=== PATIENT | male | born 1970 | race Caucasian/White ===

== ENCOUNTER 2020-04-26 09:18 | Outpatient (CLI) | payer BC, SELFPAY ==
[2020-04-28 07:38] LABS: Patient Race White; SARS-CoV-2 Specimen Source Nasal
[2020-04-28 09:04] LABS: SARS-CoV-2 RNA Detected (Undetected)
--- NOTE | 2020-04-29 16:40 | RESPIRATORY ---
04/29/2020-Met with out under carport at [facility] to review Pulse Oximetry EDU for at home testing as this Pt is COVID+. Gave a parameter handout, as well. states that this pt has had a severe headache since last Wed. and high temps . Last temp taken was 102.3.
== END 2020-04-26 09:38 ==
PROVIDERS: PCP Student in an Organized Health Care Education/Training Program; Visit Provider Student in an Organized Health Care Education/Training Program
DX: R51.9 Headache, unspecified (principal); R05 Cough
CPT/HCPCS: U0003

== ENCOUNTER 2020-05-10 03:37 | Outpatient (CLI) | payer BC, SELFPAY ==
[2020-05-12 19:20] LABS: COVID-19 RT-PCR Result NEGATIVE (Negative)
== END 2020-05-10 03:57 ==
PROVIDERS: PCP Student in an Organized Health Care Education/Training Program; Visit Provider Student in an Organized Health Care Education/Training Program
DX: Z20.828 Contact with and (suspected) exposure to other viral communicable diseases (principal)
CPT/HCPCS: U0003

== ENCOUNTER 2020-10-23 07:58 | Outpatient (CLI) | payer BC, SELFPAY ==
[2020-10-23 08:38] LABS: Anion Gap 9.7 mmol/L (3-11); BUN 19 mg/dL (7-18); CO2 28.3 mmol/L (21.0-32.0); CREATININE 1.1 mg/dL (0.70-1.30); Calcium 8.9 mg/dL (8.5-10.1); Calculated LDL 131 mg/dL (<100); Chloride 106 mmol/L (98-107); Cholesterol 198 mg/dL (<200); Glucose 102 mg/dL (74-106); HDL Cholesterol 57 mg/dL (40-60); Potassium 4.4 mmol/L (3.5-5.1); Sodium 144 mmol/L (136-145); Triglyceride 52 mg/dL (<150)
[2020-10-23 17:08] LABS: PSA, Screening 0.6 ng/mL (0.0-3.5)
== END 2020-10-23 07:59 | disposition home or self-care (01) ==
LOC: LBO 07:59
PROVIDERS: PCP Student in an Organized Health Care Education/Training Program; Visit Provider Student in an Organized Health Care Education/Training Program
DX: E86.0 Dehydration (principal); Z13.1 Encounter for screening for diabetes mellitus; Z13.220 Encounter for screening for lipoid disorders; Z12.5 Encounter for screening for malignant neoplasm of prostate
CPT/HCPCS: 80048; 80061; 84153

== ENCOUNTER 2022-01-02 09:11 | Day surgery (SDC) | payer BC, SELFPAY ==
--- NOTE | 2022-01-01 11:25 | W.COLOREPORT ---
Colonoscopy Report Date of procedure: 01/02/22 Pre-op diagnosis general: CRC screening Post-op diagnosis procedure note: other (polyp) Surgeon: Debi Little Anesthesia Type: General:No Airway Estimated blood loss (mL): 1 Pathology: other Complications: None Disposition: same day Prep: Miralax/Dulcolax Retraction Time: 9 Procedure Description: After informed consent was obtained the patient was taken to the procedure room and placed in a left decubitous position. Monitors were applied and a time out was done. The patients name, date of , procedure, allergies to medications and metal in their body was reviewed. The patient was then sedated. Once sedated and comfortable a rectal exam was done. External exam was normal. Internal exam revealed a normal sphincter tone and no palpable masses. The prostate nl. The scope was then introduced and retrofelexed. No internal hemorrhoids were identified. The scope was then advanced to the cecum w/out difficulty. The TI and appendiceal orifice were identified. The prep was BB PS 3 in the rectosigmoid/left colon and transverse colon, and 2 in the right colon/cecum, for a total of 8.. The scope was then slowly retracted over 9 minutes back into the rectum. There are no diverticula visualized. He has a small flat 5 mm polyp at 20 cm. This is removed with a cold biting forcep. All specimen is retrieved and no bleeding is noted. The scope was removed and the patient was woken up and taken back to Same day surgery in stable condition. The patient tolerated the procedure well and there were no immediate complications. Follow up: The patient should follow up in 7-10 years, path pending, unless they develop changes in bowel habits or other new gastrointestinal complaints.
--- NOTE | 2022-01-01 11:26 | PDOC.DSDIS_ITS ---
Discharge Plan Disposition Patient Disposition: HOME Condition: Good Discharge Details Reason For Visit: colon scope Attending Provider: Debi Little Primary Care Provider: Mariela Velázquez Home Meds and New Rx's Prescriptions: Discontinued bisacodyl [Dulcolax (bisacodyl)] 5 mg tablet,delayed release (DR/EC) 5 mg PO ONCE Qty: 4 0RF Rx Instructions: Take according to provider's instructions for colonoscopy prep. polyethylene glycol 3350 17 gram/dose powder 17 g PO ONCE Qty: 238 0RF Rx Instructions: To be taken as directed by prescriber's office for colonoscopy prep. No Action cholecalciferol (vitamin D3) [Vitamin D3] 125 mcg (5,000 unit) Tablet 5,000 unit PO DAILY Discharge Instructions Additional Instructions: DSU Colonoscopy Post- Op Instructions Instructions for Everyone who is given Anesthesia: For your safety, please do the following for the next twenty-four (24) hours: *Do Not operate a motor vehicle (car, truck, motorcycle, etc.) *Do Not drink alcoholic beverages or use any recreational drugs for the first 24 hours or while taking pain medications. The medications in your body may have a reaction that can be dangerous. *Do Not make any important decisions or sign any important papers. Findings: x1 small polyp otherwise normal Follow up: -My office will send a letter in 2 to 3 weeks time, detailing as to what type of polyp it is and when we want you to repeat the colonoscopy, probably in 7 to 10 years time. 1. No lifting over 20 pounds or strenuous activity for the first 24 hours after your procedure. After 24 hours there are no restrictions on your activity but you may feel fatigued for a few days. 2. After you arrive home you may have a light meal and return to your normal diet as you can tolerate it without feeling sick to your stomach. 3. You may have a bloated, gaseous feeling in your belly (abdomen) after a colonoscopy. Passing gas and belching will help. Walking or lying down on your left side with your knees flexed may relieve the discomfort. Call the office at [phone] (Office) or [phone] (Hospital) right away if you notice any of the following: a.Vomiting of blood or ?coffee ground stools?. b.Rectal bleeding 1Tbsp, blood clots or continuous bleeding. c.Severe belly (abdominal) pain. d.A hard distended belly (abdomen) and an inability to pass gas. 4. Please don?t expect to have a normal BM (bowel movement) for 2-3 days after your procedure. 5. If there are questions regarding the findings of your procedure, please contact your doctor 6. If you are unable to contact your doctor with a problem, contact the hospital at [phone]. 7. Continue all your regular medications unless directed otherwise. I understand the above instructions and have no questions. Signature of Patient or Adult Escort Name of Responsible Adult Escort Signature of Nurse Date/Time Activity:: see above Diet:: see above Discharge Orders Discharge Orders: Discharge Order (Routine); Ordered 01/01/22 Ordered By: Debi Little
[2022-01-02 09:30] VITALS: BP 121/86; PULSE 91; RESP 16; TEMP 36.5; O2SAT 96
[2022-01-02] MEDS: Lactated Ringers 1,000 ML 80 ML IV (09:49)
--- NOTE | 2022-01-02 10:08 | W.ANESPRE ---
General Info Date of Service Date Performed: 01/02/22 Height: 5 ft 10 in Weight: 94.1 kg Body Mass Index (BMI): 29.7 Surgical Procedure: Operation Date: 01/02/22 10:35 Proposed Procedure Side Surgeon kallie Little DO Meds Allergies and Home Medications Allergies Allergy/AdvReac Type Severity Reaction Status Date / Time No Known Allergies Allergy Verified 01/02/22 09:36 Home Medication Medication Instructions Recorded cholecalciferol (vitamin D3) 125 5,000 unit PO DAILY 01/01/22 mcg (5,000 unit) tablet (Vitamin D3) Current Visit Medications: Current Medications Generic Name Dose Route Start Last Admin Trade Name Freq PRN Reason Stop Dose Admin Hyoscyamine Sulfate 0.125 mg 01/01/22 11:24 Hyoscyamine 0.125 Mg Sl/Oral/Chew SL DIRECTED PRN Ringer's Solution 1,000 mls @ 80 mls/hr 01/02/22 06:00 01/02/22 09:49 IV 01/31/22 23:59 80 mls/hr INFUSION JOSE Administration IV Miscellaneous Supplies 1 each 01/02/22 06:00 Iv Access IV 01/31/22 23:59 DIRECTED JOSE Ondansetron HCl 4 mg 01/01/22 11:24 Ondansetron 4 Mg/2 Ml Vial IVP Q4H PRN PRN Nausea / Vomiting Sodium Chloride 0 ml 01/02/22 06:00 Normal Saline Flush 10 Ml Syr IV 01/31/22 23:59 PRN PRN Sodium Chloride 0 ml 01/02/22 06:00 Normal Saline 10 Ml Vial IJ 01/31/22 23:59 DIRECTED PRN Sterile Water 0 ml 01/02/22 06:00 Water,Injection,Sterile 10 Ml Vial IJ 01/31/22 23:59 DIRECTED PRN PFSH Active Problems Active Problems: Problem Status Onset Code Screening for colon cancer Z12.11 Medical History Medical History Cutaneous skin tags Numerous, benign, some irritated (axillary) Dizziness w/ -weight lift .. monitoring/discussed thoracic pressure changes (~ valsalva) Surgical History Surgical History H/O vasectomy 2004 Tobacco Smoking/Tobacco Use Status: Never Passive smoking exposure: Yes Alcohol Alcohol Intake: never Substance Use Substance use: Never Substance use type: does not use Vital Signs and Lab Results Vital Signs Most Recent Vital Signs in EMR: Most Recent Vital Signs Temp Pulse Resp BP Pulse Ox 36.5 C 91 H 16 121/86 96 01/02/22 09:30 01/02/22 09:30 01/02/22 09:30 01/02/22 09:30 01/02/22 09:30 Lab Results Blood Type / Crossmatch: No Data to Display Complete Blood Count: No Data to Display Complete Metabolic Panel: No Data to Display Liver Function Panel: No Data to Display Coagulation Panel: No Data to Display Cardiac Panel: No Data to Display Arterial Blood Gas: No Data to Display Venous Blood Gas: No Data to Display Pancreas Panel: No Data to Display Thyroid Panel: No Data to Display Infectious Disease: No Data to Display Blood Cultures: No Data to Display Toxicology Panel: No Data to Display Anesthesia Assessment and Plan Anesthesia History Personal History: No History of General Anesthesia Family History: No Family History of Anesthesia Complications Exercise Tolerance Exercise Tolerance: Metabolic Equivalents>4 Pertinent Negatives Pertinent Negatives: No Symptoms of GERD, No Major Cardiovascular Symptoms or Complaints, No Major Pulmonary Symptoms or Complaints and No History of CVA/TIA Cardiac & Pulmonary Exam Cardiac Exam: Normal S1/S2 Heart Sounds Pulmonary Exam: Clear Bilateral Breath Sounds Implantable Cardiac Device Does patient have a Pacemaker or an ICD?: No Airway Exam Known Difficult Airway: No Mallampati Class: 1 Mouth Opening: Normal (> 3cm) Thyromental Distance: Greater than 3 cm Neck Range of Motion: Full ROM Neck Circumference: Normal Teeth Condition: Normal Dentition ASA Classification ASA Score: ASA 2 Emergency Case?: Yes NPO Status NPO Status: NPO Clears >2 hours, Solids >8 hours Anesthesia Plan Resuscitation Status: Full Code Anesthesia Technique: General Anesthesia Airway Planned: Natural Airway Monitors Used: Standard Monitors
[2022-01-02 10:10] VITALS: BMI 29.7
--- NOTE | 2022-01-02 10:40 | BOWEL_PTH ---
PATIENT: Bogdan Silverio LOC: [facility] U#:[id number] AGE/SX: 51/M ROOM: RE01/02/[address]: Debi Little : 1970 BED: DIS: 01/02/2022 SPEC #: [id number] RECD: 01/02/22 11:06 STATUS: JAMES REQ #: [id number] REJI: 01/02/22 10:[address]: Debi Little DEPT: Surgical Specimen RECD BY: Robina Talley ENTERED: 01/02/22 11:07 SP TYPE: Bowel OTHR DR: Mariela Velázquez DO Tissues: 1 - BIOPSY BOWEL Procedures: GROSS AND MICRO LEVEL 4 Comments: [id number]
--- NOTE | 2022-01-02 10:49 | W.ANESPOSTOP ---
Postoperative Evaluation Date, Time and Location Date Performed: 01/02/22 Time Performed: 10:50 Patient Location: Day Surgery Unit Vital Signs Most Recent Imported Vital Signs: Most Recent Vital Signs Temp Pulse Resp BP Pulse Ox 36.5 C 91 H 16 121/86 96 01/02/22 09:30 01/02/22 09:30 01/02/22 09:30 01/02/22 09:30 01/02/22 09:30 Most Recent Manually Entered Vital Signs: Adult Blood Pressure: 116/85 Heart Rate: 82 Respirations: 10 Oxygen Saturation (%): 95 Temperature (C): 36.3 C Pain Score (0-10 Scale): 0 Assessment Mental Status: Awake (Alert & Oriented to Patient Baseline) Airway and Respiratory Function: Patent airway with normal (patient baseline) respiratory exam Cardiovascular Function: Hemodynamically Stable Hydration Status: Adequately Hydrated Nausea & Vomiting: No Nausea or Vomiting Pain: Pt. Denies Any Pain Peripheral Nerve Block: Patient did not receive a nerve block
[2022-01-02 10:50] VITALS: BP 116/85; PULSE 85; RESP 16; TEMP 35.9; O2SAT 94
[2022-01-02 10:51] VITALS: BP 116/85; PULSE 82; RESP 10; TEMPC 36.3; O2SAT 95
[2022-01-02 11:23] VITALS: BP 125/84; PULSE 72; RESP 16; TEMP 36.5; O2SAT 94
== END 2022-01-02 12:04 | disposition home or self-care (01) ==
PROVIDERS: PCP Student in an Organized Health Care Education/Training Program; Visit Provider Surgery
PROC: 0DJD8ZZ Inspection of Lower Intestinal Tract, Via Natural or Artificial Opening Endoscopic (ICD-10-PCS; CPT 45378; principal; 2022-01-02 10:30)
DX: Z12.11 Encounter for screening for malignant neoplasm of colon (principal); K63.5 Polyp of colon
CPT/HCPCS: 45380; 88305

== ENCOUNTER 2023-12-10 01:46 | Outpatient (CLI) | payer BC, SELFPAY ==
--- OUTSIDE RECORDS SUMMARY | 2023-12-10 01:47 | XMS_ITS | Clinical Summary ---
Author Organization [facility] Address [address] [place] [address] Care Team Providers Care Colored Liquid Plastic Applier Name Role Phone Mariela Velázquez Primary Care Provid er Social History Tobacco Use Types Packs/Day Years Used Date Smoking Tobacco: Never Assessed Interpersonal Safety Answer Date Record ed Physically Hurt Never 05/12/2020 Verbally Threaten Not on file 05/12/2020 Sex and Gender Information Value Date Recorded Sex Assigned at Not on file Gender Identity Not on file Sexual Orientation Not on file Plan of Treatment Health Maintenance Due Date Last Done Comments Hepatitis C Screen 1970 Hepatitis B Vaccine (1 of 3 - 19+ 3-dose series) 08/25 COVID-19 Vaccine (2022- season) 2023 Care Teams Colored Liquid Plastic Applier Relationship Specialty Start Date End Date Mariela Velázquez DO [address] [place] [address] PCP - General 12/29/21
--- OUTSIDE RECORDS SUMMARY | 2023-12-10 01:47 | XMS_ITS | Referral Summary ---
Author Organization [facility] Address [address] [place] [address] Care Team Providers Care Director Of Promotions Name Role Phone Mariela Velázquez Primary Care [...] Orientation Not on file Plan of Treatment Not on file Care Teams Director Of Promotions Relationship Specialty Start Date End Date Mariela Velázquez DO [address] [place] [address] PCP - General 12/29/21
--- OUTSIDE RECORDS SUMMARY | 2023-12-10 01:48 | XMS_ITS | Encounter Summary ---
Author Organization [facility] Address [address] [place] [address] Care Team Providers Care Network Security Architect Name Role Phone BethMariela clements Primary Care Provid er Encounter Details Date Type Department Care Team (Late st Contact Info) Description 01/02/2022 Lab Requisition [facility] Pathology & Laboratory Medicine - [facility] [address] [place] [address] Debi Little DO [address] [place] [address] Encounter for screening for malignant neoplasm of colon Social History Tobacco Use Types Packs/Day Years Used Date Smoking Tobacco: Never Assessed Interpersonal Safety Answer Date Record ed Physically Hurt Never 05/12/2020 Verbally Threaten Not on file 05/12/2020 Sex and Gender Information Value Date Recorded Sex Assigned at Not on file Gender Identity Not on file Sexual Orientation Not on file documented as of this encounter Plan of Treatment Not on file documented as of this encounter Procedures Procedure Name Priority Date/Time Associated Diagnosis Comments SURGICAL PATHOLOGY Today 01/02/2022 10 :40 EDT Encounter for screening for malignant neoplasm of colon documented in this encounter Results * SURGICAL PATHOLOGY (01/02/2022 10:40 EDT) Note to Patient The following pathology results have been interpreted by your pathologist and may be available to you before your health provider has had the opportunity to review them. Please allow time for your provider to receive these results and explore management options, if applicable. 01/05/2022 11:34 EDT [facility] Final Diagnosis A. COLON, POLYP, 20 CM, BIOPSY: - Hyperplastic polyp. 01/05/2022 11:34 T [facility] Attestation By the signature below, the attending physician certifies that they have 1) personally conducted a gross and/or microscopic examination of the described specimen(s), and/or personally interpreted the results of laboratory testing of the described specimen(s), and 2) personally rendered or confirmed the above diagnosis. 01/05/2022 11:34 [facility] at [address]4 Clinical History Screening, colon polyp 01/05/2022 11:34 T [facility] Gross Description A. Received in formalin labelled with proper patient identification (initials O, C) and 1. Polyp @ 20 cm are two garcia-brown focally brown speckled tissues (0.3 x 0.3 x 0.1 cm and 0.2 x 0.1 by less than 0.1 cm). Entirely submitted in A1. Please note the smaller tissue may not survive processing. AHSAN SALEEM 01/03/2022 13:44 01/05/2022 11:34 EDT [facility] Performing Lab [facility] 01/05/2022 11:34 [facility] Scanned Images 01/05/2022 11:34 [facility] Tissue ENTIRE COLON / Unknown 01/02/2022 10:40 EDT 01/02/2022 18:18 EDT Debi Little DO PATHOLOGY ORDERABLES [facility] [address] [place] [address] documented in this encounter Visit Diagnoses Diagnosis Encounter for screening for malignant neoplasm of colon Special screening for malignant neoplasms, colon documented in this encounter Care Teams Network Security Architect Relationship Specialty Start Date End Date Mariela Velázquez DO [address] [place] [address] PCP - General 12/29/21 documented as of this encounter
--- OUTSIDE RECORDS SUMMARY | 2023-12-10 01:48 | XMS_ITS | Encounter Summary ---
Author Organization [facility] Address [address] [place] [address] Care Team Providers Care Manager English Name Role Phone Mariela Velázquez Primary Care Provid er Encounter Details Date Type Department Care Team (Late st Contact Info) Description 05/10/2020 Lab Requisition [facility] Pathology & Laboratory Medicine - [facility] [address] [place] [address] Outr Resulting Lab, Provider Social History Tobacco Use Types Packs/Day Years [...] Procedure Name Priority Date/Time Associated Diagnosis Comments DO NOT ORDER STANDALONE - [facility] COVID TEST Today 05/10/2020 13:17 EST COVID-19 TESTING Routine 05/10/2020 13:1 7 EST documented in this encounter Results * DO NOT ORDER STANDALONE - [facility] COVID TEST (05/10/2020 13:17 EST) COVID-19 rt-PCR Result NEGATIVE Negative 05/12/2020 15:45 EST [facility] Comment: 2019-novel Coronavirus (2019-nCoV) not detected by the qRT-PCR assay. Consider testing for other respiratory viruses or re-collecting for 2019-nCoV testing. Note: Optimum timing for peak viral levels during infections caused by 2019-nCoV have not been determined. Collection of multiple specimens from the same patient may be necessary to detect the virus. Limitations Positive results are indicative of active infection with SARS-CoV-2 but do not rule out bacterial infection or co-infection with other viruses. The agent detected may not be the definite cause of disease. In addition, detection of viral RNA may not indicate the presence of infectious virus or that SARS-CoV-2 is the causative agent for clinical symptoms. Negative results do not preclude SARS-CoV-2 infection and should not be used as the sole basis for patient management decisions. Negative results must be combined with clinical observations, patient history, and epidemiological information. False negative results may also occur if amplification inhibitors are present in the specimen or if inadequate numbers of organisms are present in the specimen. Optimum specimen types and timing for peak viral levels during infections caused by SARS-CoV-2 have not been fully determined. Collection of multiple specimens (types and time points) from the same patient may be necessary to detect the virus. The test was validated for use with upper respiratory specimens obtained via nasopharyngeal or oropharyngeal swabs in VTM, UTM, M4, M5, M6, saline, and MTM media. The performance of this test has not been established for other specimens. Specimens collected using other FDA recommended Specimen Collection Materials listed in the FDA COVID-19 [employer] communication (August 24, 2019) are processed with the caveat that they were not all validated for use with this test and the result must be interpreted in this context. Furthermore, a false negative results may occur if a specimen is improperly collected, transported or handled. If the virus mutates in the RT-PCR target region, SARS-CoV-2 may not be detected or may be detected less predictably. Inhibitors or other types of interference may produce a false negative result. An interference study evaluating the effect of common cold medications was not performed. This test is not FDA-cleared but its performance characteristics were established by our CLIA-certified, CAP-accredited, high complexity laboratory in accordance with CLIA regulations, [employer] (CAP) guidelines (Aug 17, 2019), and FDA guidance (Jul 29, 2019). This test is only for use under the Food and Drug Administration's Emergency Use Authorization. Swab ENTIRE NASOPHARYNX / Unknown 05/10/2020 13:17 EST 05/10/2020 21:07 EST Provider Outr Resulting Lab MICROBIOLOGY - GENERAL ORDERABLES [facility] [place], [place] * COVID-19 TESTING (05/10/2020 13:17 EST) Pathologist [facility] COVID-19 rt-PCR Result NEGATIVE Negative 05/12/2020 19:15 EST [facility] Comment: 2019-novel Coronavirus (2019-nCoV) not detected by the qRT-PCR assay. Consider testing for other respiratory viruses or re-collecting for 2019-nCoV testing. Note: Optimum timing for peak viral levels during infections caused by 2019-nCoV have not been determined. Collection of multiple specimens from the same patient may be necessary to detect the virus. Limitations Positive results are indicative of active infection with SARS-CoV-2 but do not rule out bacterial infection or co-infection with other viruses. The agent detected may not be the definite cause of disease. In addition, detection of viral RNA may not indicate the presence of infectious virus or that SARS-CoV-2 is the causative agent for clinical symptoms. Negative results do not preclude SARS-CoV-2 infection and should not be used as the sole basis for patient management decisions. Negative results must be combined with clinical observations, patient history, and epidemiological information. False negative results may also occur if amplification inhibitors are present in the specimen or if inadequate numbers of organisms are present in the specimen. Optimum specimen types and timing for peak viral levels during infections caused by SARS-CoV-2 have not been fully determined. Collection of multiple specimens (types and time points) from the same patient may be necessary to detect the virus. The test was validated for use with upper respiratory specimens obtained via nasopharyngeal or oropharyngeal swabs in VTM, UTM, M4, M5, M6, saline, and MTM media. The performance of this test has not been established for other specimens. Specimens collected using other FDA recommended Specimen Collection Materials listed in the FDA COVID-19 [employer] communication (August 24, 2019) are processed with the caveat that they were not all validated for use with this test and the result must be interpreted in this context. Furthermore, a false negative results may occur if a specimen is improperly collected, transported or handled. If the virus mutates in the RT-PCR target region, SARS-CoV-2 may not be detected or may be detected less predictably. Inhibitors or other types of interference may produce a false negative result. An interference study evaluating the effect of common cold medications was not performed. This test is not FDA-cleared but its performance characteristics were established by our CLIA-certified, CAP-accredited, high complexity laboratory in accordance with CLIA regulations, [employer] (CAP) guidelines (Aug 17, 2019), and FDA guidance (Jul 29, 2019). This test is only for use under the Food and Drug Administration's Emergency Use Authorization. Performing Lab [facility] 05/12/2020 19:15 EST [facility] Swab 05/10/2020 13:1 7 EST 05/10/2020 21:07 EST Provider Outr Resulting Lab MICROBIOLOGY - GENERAL ORDERABLES Performing Organization Address City/State/[facility] Co de Phone Number [facility] [address] [place] [address] [facility] [place], [place] documented in this encounter Visit Diagnoses Not on filedocumented in this encounter Care Teams Manager English Relationship Specialty Start Date End Date Mariela Velázquez DO [address] [place] [address] PCP - General 12/29/21 documented as of this encounter
--- OUTSIDE RECORDS SUMMARY | 2023-12-10 01:48 | XMS_ITS | Encounter Summary ---
Author Organization [facility] Address [address] [place] [address] Care Team Providers Care Speaking Unit Assembler Name Role Phone Mariela Velázquez Primary Care Provid er Encounter Details Date Type Department Care Team (Late st Contact Info) Description 10/23/2020 Lab Requisition [facility] Pathology & Laboratory Medicine - [facility] [address], [place] [id number] Outr Resulting Lab, Provider Social History Tobacco [...] Procedure Name Priority Date/Time Associated Diagnosis Comments PSA TOTAL, DIAGNOSTIC Routine 10/23/2020 8:12 EDT documented in this encounter Results * PSA TOTAL, DIAGNOSTIC (10/23/2020 8:12 EDT) PSA 0.6 0.0 - 3.5 ng/mL 10/23/2020 17:[address] [facility] Blood VENOUS BLOOD / Unknown 10/23/2020 8:12 EDT 10/23/2020 16:02 EDT Narrative [facility] - 10/23/2020 17:02 EDT NOTE: Serum PSA concentration should not be interpreted as absolute evidence for the presence or absence of malignant disease. Assayed on Siemens ADVIA Centaur XPT using chemiluminescent technology.??Values obtained by using different assay methods cannot be used interchangeably. Provider Outr Resulting Lab CHEMISTRY & BLOOD GAS ORDERABLES [facility] [address] [place] [address] documented in this encounter Visit Diagnoses Not on filedocumented in this encounter Care Teams Speaking Unit Assembler Relationship Specialty Start Date End Date Mariela Velázquez DO [address] [place] [address] PCP - General 12/29/21 documented as of this encounter
[2023-12-10 08:59] LABS: Anion Gap 5.7 mmol/L (3-11); BUN 19 mg/dL (7-18); CO2 29.3 mmol/L (21.0-32.0); CREATININE 0.9 mg/dL (0.70-1.30); Calcium 8.6 mg/dL (8.5-10.1); Calculated LDL 139 mg/dL (<100); Chloride 108 mmol/L (98-107); Cholesterol 205 mg/dL (<200); Estimated GFR 101.49 (mL/min/1.73m2); Glucose 104 mg/dL (74-106); HDL Cholesterol 51 mg/dL (40-60); Potassium 4.3 mmol/L (3.5-5.1); Sodium 143 mmol/L (136-145); Triglyceride 77 mg/dL (<150)
== END 2023-12-10 01:47 | disposition home or self-care (01) ==
LOC: LBO 01:46
PROVIDERS: PCP Student in an Organized Health Care Education/Training Program; Visit Provider Student in an Organized Health Care Education/Training Program
DX: I10 Essential (primary) hypertension (principal); Z13.220 Encounter for screening for lipoid disorders
CPT/HCPCS: 36415; 80048; 80061

== ENCOUNTER 2024-03-02 14:11 | Outpatient (REF) | payer BC, SELFPAY ==
--- NOTE | 2024-03-02 13:45 | SKI_PTH ---
PATIENT: Bogdan Silverio LOC: [facility] U#:[id number] AGE/SX: 53/M ROOM: RE03/02/[address]: Debi Little : 1970 BED: DIS: 03/02/2024 SPEC #: [id number] RECD: 03/02/24 18:11 STATUS: JAMES REQ #: [id number] REJI: 03/02/24 13:[address]: Debi Little DEPT: Surgical Specimen RECD BY: Skylar Quezada ENTERED: 03/02/24 18:11 SP TYPE: SKI OTHR DR: Mariela Velázquez DO Tissues: 1 - SKIN CYST/TAG/DEBRIDEMENT Procedures: GROSS AND MICRO LEVEL 4 Comments: [id number]
== END 2024-03-02 14:12 | disposition home or self-care (01) ==
LOC: LBN 14:11
PROVIDERS: PCP Student in an Organized Health Care Education/Training Program; Visit Provider Surgery
DX: L91.8 Other hypertrophic disorders of the skin (principal)
CPT/HCPCS: 88305; 88304